=== PATIENT | female | born 1940 | race Caucasian/White ===

== ENCOUNTER 2018-03-13 20:07 | Inpatient (IN) | payer MEDICARE, BC ==
[~2018-03-13] VITALS: Ht 152.4 cm; Wt 37.1 kg
[2018-03-13 20:08] VITALS: BP 93/54
[2018-03-13] MEDS ORDERED: IPRAT-ALBUT 0.5-3 ML INH (20:28)
[2018-03-13] MEDS ORDERED: VENTOLIN HFA 1818 GM INH (20:29)
[2018-03-13] MEDS ORDERED: CLARITIN10 MG PO (20:29)
[2018-03-13] MEDS ORDERED: ALBUTEROL2.5 MG/31 INH (20:29)
[2018-03-13] MEDS ORDERED: PREDNISONE 10 M10 MG PO (20:29)
[2018-03-13] MEDS ORDERED: MUCINEX100 MG PO (20:30)
[2018-03-13] MEDS ORDERED: LASIX 40 MG TAB40 M2 PO (20:31)
[2018-03-13] MEDS ORDERED: XANAX 0.25 MG0.25 MG PO (20:31)
[2018-03-13] MEDS ORDERED: COLACE100 MG PO (20:31)
[2018-03-13] MEDS ORDERED: SINGULAIR 10 MG10 M1 PO (20:31)
[2018-03-13] MEDS ORDERED: ATIVAN1 MG PO (20:33)
[2018-03-13] MEDS ORDERED: MSL20MG/ML PO (20:33)
[2018-03-13 20:41] LABS: ABSOLUTE BASOPHILS 0.1 thou/uL (0.0-0.2); ABSOLUTE EOSINOPHILS 0.2 thou/uL (0.0-0.7); ABSOLUTE MONOCYTES 0.7 thou/uL (0.0-1.2); ABSOLUTE NEUTROPHILS 6.3 thou/uL (1.6-8.1); BASOPHILS 1.2 %; EOSINOPHILS 2.1 %; HEMATOCRIT 30.3 % (37.0-47.0); HEMOGLOBIN 10.2 gm/dL (12.0-15.0); LYMPHOCYTES 12.3 %; MCHC 33.6 g/dL (28.0-37.0); MCV 92.1 fL (80.0-100.0); MONOCYTES 8.3 %; MPV 6.8 fl. (7.2-11.1); NUCLEATED RBCS 0 /100WBC; PLATELET COUNT* 258 thou/uL (150-400); POLYS 76.1 %; RBC 3.28 mil/uL (4.20-5.00); RDW-CV 13.8 % (10.5-14.5); WBC 8.2 thou/uL (4.0-11.0)
[2018-03-13 20:51] LABS: ANION GAP 0 mmol/L (7-16); BUN 30 mg/dL (7-18); CHLORIDE 100 mmol/L (98-107); CO2 38 mmol/L (21-32); CREATININE 0.7 mg/dL (0.6-1.3); GLUCOSE 109 mg/dL (70-99); POTASSIUM 4.1 mmol/L (3.5-5.1); SODIUM 138 mmol/L (136-145)
[2018-03-13 21:01] LABS: ALBUMIN 2.8 g/dL (3.4-5.0); ALKALINE PHOSPHATASE 78 U/L (46-116); LIPASE 91 U/L (73-393); NT-PRO BRAIN NAT PEPTIDE 332 pg/mL (<300); SGOT 13 U/L (15-37); SGPT 22 U/L (30-65); TOTAL BILIRUBIN 0.2 mg/dL (<0.1-1.0); TOTAL PROTEIN 5.7 g/dL (6.4-8.2); TROPONIN-I LEVEL <0.06 ng/mL (<0.06)
[2018-03-13 21:06] LABS: BE 12.4 mmol/L (-2 to +3); HCO3 37.7 mmol/L (22.0-26.0); PO2 88.1 mmHg (75.0-100.0); pH 7.474 (7.340-7.450)
[2018-03-13 21:07] LABS: PCO2 52.5 mmHg (35.0-45.0)
[2018-03-13 21:55] VITALS: BP 97/52
[2018-03-13 22:10] VITALS: BP 92/51
[2018-03-14 01:00] VITALS: BP 99/45
[2018-03-14 04:00] VITALS: BP 113/56
[2018-03-14 06:30] LABS: BE 6.3 mmol/L (-2 to +3); HCO3 31.8 mmol/L (22.0-26.0); PO2 75.3 mmHg (75.0-100.0); pH 7.417 (7.340-7.450)
[2018-03-14 06:41] LABS: PCO2 50.5 mmHg (35.0-45.0)
[2018-03-14 08:15] VITALS: BP 120/70
[2018-03-14] MEDS ORDERED: PROTONIX40 M1 PO (10:35)
[2018-03-14] MEDS ORDERED: AUGMENTIN 875-1 EACH PO (10:36)
--- NOTE | 2018-03-14 10:38 | EKG ---
[place] [address] ELECTROCARDIOGRAM REPORT Name: RADHA CHACON Room: [address] ADM IN M.R.#: [id number] Admission: 03/13/18 Attend Phys: Reva Chiu MD Discharge: Date of : 38 Report #: [id number] THIS REPORT FOR: //name// [facility] ED Test Date: 2018-03-13 Test Time: 20:16:35 Pat Name: RADHA CHACON Department: Room: [facility] Gender: F Security System Administrator: AP : 1940 Requested By: Odilia Chanel Order Number: [id number] MD: Jacinto Arenas Measurements Intervals Luana Rate: 97 P: 82 [place]: 134 QRS: 64 QRSD: 77 T: 79 QT: 343 QTc: 436 Interpretive Statements Sinus rhythm Atrial premature complexes Compared to ECG 10/10/2005 11:21:53 Atrial premature complex(es) now present Electronically Signed On 03-14-2018 10:37:56 CDT by Jacinto Arenas [email or web address] <ELECTRONICALLY SIGNED> By: Jacinto Arenas MD, [facility] 03/14/18 1037 15 15 Jacinto Arenas MD, [facility] /EPI
[2018-03-14 10:46] VITALS: BP 113/56
[2018-03-14 12:03] VITALS: BP 123/62
== END 2018-03-14 13:31 | disposition home health service (06) | DRG 189 ==
LOC: M.ERS 20:07 → M.2W 21:31 → M.TBA-ER 21:31 → M.2W 22:50
PROVIDERS: Personal Emergency Response Attendant; ADMIT Internal Medicine
DX: J96.20 Acute and chronic respiratory failure, unspecified whether with hypoxia or hypercapnia (principal); E43 Unspecified severe protein-calorie malnutrition; J44.1 Chronic obstructive pulmonary disease with (acute) exacerbation; Z68.1 Body mass index [BMI] 19.9 or less, adult; J44.0 Chronic obstructive pulmonary disease with (acute) lower respiratory infection; Z66 Do not resuscitate; I20.9 Angina pectoris, unspecified; F17.210 Nicotine dependence, cigarettes, uncomplicated; I25.2 Old myocardial infarction; Z88.6 Allergy status to analgesic agent; Z91.012 Allergy to eggs; Z91.011 Allergy to milk products; Z91.010 Allergy to peanuts; Z79.899 Other long term (current) drug therapy; J20.9 Acute bronchitis, unspecified